=== PATIENT | female | born 1965 | race Caucasian/White ===

== ENCOUNTER → 2016-12-15 | Outpatient (CLI) | payer BC ==
[~2016-12-15] MED LIST: AMITRIPTYLINE H25 M3 PO; BACLOFEN 10 MG10 MG PO; ELMIRON 100 MG100 M1 PO; HYDROCODON-ACE1 EAC7 PO; HYDROCODON-ACE1 EACH PO; LISINOPRIL20 MG PO; LYRICA 75 MG CA75 MG PO; TAMSULOSIN HCL0.4 M1 PO; TIZANIDINE HCL4 M1 PO; URELLE PO
== END | disposition home or self-care (01) ==
LOC: RAD 08:55
DX: M25.561 Pain in right knee (principal)

== ENCOUNTER → 2018-03-28 | Outpatient (CLI) | payer BC | LOC: RAD 14:56 | DX: M47.894 Other spondylosis, thoracic region (principal); M48.04 Spinal stenosis, thoracic region; Z96.89 Presence of other specified functional implants ==

== ENCOUNTER → 2019-07-04 | Outpatient (CLI) | payer BC | LOC: RAD 12:23 | DX: M25.552 Pain in left hip (principal) ==